=== PATIENT | female | born 1980 | race Caucasian/White ===

== ENCOUNTER 2020-11-30 14:02 | Emergency (ER) | payer OTHER, SELFPAY ==
[2020-11-30 14:17] VITALS: BP 144/69; PULSE 72; RESP 18; TEMP 36.8; O2SAT 99; BMI 31.5
--- NOTE | 2020-11-30 16:09 | PC.NURSE ---
ambulatory with steady/limping gait to ed bed 19h, cold pack applied, +pp
--- NOTE | 2020-11-30 16:21 | ED.LOWEXIN ---
HPI - Extremity Injury (Lower) General Chief Complaint: Extremity Injury, Lower Stated Complaint: toe pain, injury Time Seen by Provider: 11/30/20 16:21 Source: patient Mode of arrival: ambulatory Limitations: no limitations History of Present Illness HPI Narrative: Patient stubbed left 5th toe while coming out of bathtub today, on Eliquis for DVT , now complaining of increased swelling and pain, no other injuries Related Data Previous Rx's Medication Instructions Recorded oxycodone 5 mg PO Q6H PRN #20 tab 11/30/20 Allergies Allergy/AdvReac Type Severity Reaction Status Date / Time sulfamethoxazole Allergy Unknown WEIRD Verified 11/30/20 14:22 [From BACTRIM] SENSATION IN LIMBS sumatriptan [From IMITREX] Allergy Unknown FEELS LIKE Verified 11/30/20 14:22 HEAD IS SWOLLWN AND THROAT CLOSES trimethoprim [From BACTRIM] Allergy Unknown WEIRD Verified 11/30/20 14:22 SENSATION IN LIMBS Review of Systems Review of Systems: Yes all other systems are reviewed and are negative [facility] Past Medical History Medical History (Updated 11/30/20 @ 17:06 by Micky Espitia MD) H/O venous thrombosis and embolism Social History Social History Advance Directives: No Advance Directives Information Provided: Yes Physical Exam Vital Signs: Vital Signs: Last Vital Signs Temp 98.3 F 11/30/20 14:17 Pulse 72 11/30/20 14:17 Resp 18 11/30/20 14:17 BP 144/69 H 11/30/20 14:17 Pulse Ox 99 11/30/20 14:17 Body Mass Index 31.5 Const: General: comfortable and no acute distress HENMT: Head: Yes normocephalic and Yes atraumatic Extrem: Ankle/foot/toe images: 1. Swollen bruised no deformity tender+ MDM - Extremity Injury (Lower) MDM Narrative Medical decision making narrative: Patient with contusion of left 5th toe x-ray negative for fracture salma tape was applied patient comfortable to go home Discharge Plan Discharge Clinical Impression: Contusion of foot, left Qualifiers: Encounter type: initial encounter Qualified Code(s): S90.32XA - Contusion of left foot, initial encounter Patient Disposition: Home, Self-Care Instructions: Foot Contusion (ED) Additional Instructions: Apply ice rest to the left foot Take pain medicine as advised for severe pain Prescriptions: New oxycodone 5 mg tablet 5 mg PO Q6H PRN (Reason: Pain, Moderate) Qty: 20 RF: 0
--- NOTE | 2020-11-30 16:31 | XR_ITS ---
EXAMINATION: XR FOOT, LEFT CLINICAL INFORMATION: Pain fifth toe. COMPARISON: None TECHNIQUE: AP, lateral, and oblique views of the left foot. FINDINGS: There is no visible acute fracture, dislocation or subluxation seen involving the fifth toe. The soft tissues are normal. XR/XR foot LT min 3V IMPRESSION: Unremarkable left fifth toe exam.`
== END 2020-11-30 17:35 | disposition home or self-care (01) ==
PROVIDERS: Emergency Provider Internal Medicine; PCP Internal Medicine
DX: S90.122A Contusion of left lesser toe(s) without damage to nail, initial encounter (principal); W22.09XA Striking against other stationary object, initial encounter; Z86.718 Personal history of other venous thrombosis and embolism; Z79.01 Long term (current) use of anticoagulants; Y93.E1 Activity, personal bathing and showering; Y92.012 Bathroom of single-family (private) house as the place of occurrence of the external cause; Y99.9 Unspecified external cause status
CPT/HCPCS: 73630; 99283; 99284

== ENCOUNTER 2021-08-26 09:44 | Outpatient (REF) | payer OTHER, SELFPAY ==
--- NOTE | ~2021-08-26 | XR_ITS ---
EXAMINATION: XR SHOULDER, RIGHT CLINICAL INFORMATION: Pain. COMPARISON: None TECHNIQUE: AP external rotation, Grashey, scapular Y, and axillary views of the right shoulder. FINDINGS: The bones and soft tissues are normal. No fracture. Glenohumeral and acromioclavicular alignment is anatomic with normal joint space. No abnormal soft tissue calcifications. XR/XR shoulder RT min 2V IMPRESSION: Normal right shoulder.
== END 2021-08-26 09:45 | disposition home or self-care (01) ==
LOC: HO.XRAY 09:44
PROVIDERS: PCP Internal Medicine; Visit Provider Nurse Practitioner Family
DX: M25.511 Pain in right shoulder (principal); M54.50 Low back pain, unspecified; M53.3 Sacrococcygeal disorders, not elsewhere classified; G89.29 Other chronic pain
CPT/HCPCS: 73030; 99202